=== PATIENT | male | born 1975 | race Caucasian/White ===

== ENCOUNTER 2019-01-20 19:46 | Emergency (ER) | payer OTHER ==
[~2019-01-20] VITALS: Ht 165.1 cm; Wt 66.7 kg
[2019-01-20 19:48] VITALS: Ht 165.1 cm; Wt 66.7 kg
[2019-01-20 20:38] VITALS: BP 135/80
== END 2019-01-20 20:38 | disposition other institution (70) ==
LOC: ED 19:46
DX: Z02.89 Encounter for other administrative examinations (principal)